=== PATIENT | male | born 1955 | race Two or more races ===

== ENCOUNTER 2021-01-04 16:24 | Outpatient (AMBR) | payer MEDICARE, MEDICAID, SELFPAY ==
--- NOTE | 2020-12-29 14:05 | PT.OIERPT ---
PT OP Initial Eval Patient Information Visit Reasons: Z86.73 Treatment Dx #1: LE weakness Start of Care: 12/29/20 Date of Onset: 3 months ago Initial Assessment Subjective Pt is 65 yr old french speaking male here with his dtr s/p cerebral hemmorhage x3 and brain sx October 10. Since then he has L LE pain behind the knee and it feels heavy. He walked around [employer] store for 30-40 mins but needs to lean onto the cart. Without the cane he struggles to walk. With it he can walk about a block. He is unable to drive safely. PMH: L/S sx x3 Pt goal: to be able to drive safely and improve community mobility. Objective 30 second chair to stand test: 8 L LE strength: ArOM: Quads: 4-/5 Extension: full HS: 3+/5 Flexion: 108 deg SLR: 40 deg Db's test: positive SLS: poor Line Pilot strength: R: 100 lbs L: 92 lbs TTP: moderate of posterior knee Assessment Pt presents with L LE weakness and pain consistent with OA. Pt doesn't have abnormal tone or neurologic deficits of L LE and good motor control. He has hamstring weakness on that side and it's unclear if that is from his Hx of lumbar spine sx or OA. Pt would benefit from skilled therapy in order to strengthen LE's and has fair rehab potential. 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 Ind with HEP 2. Pt will improve L knee strength to at least 4/5 quads and HS 3. Improved 30 sec chair to stand test to 10 Treatment Plan 1. Manual therapy 2. Therex 3. Modalities as indicated, moist heat, ice, estim Frequency and Duration 2x a week for 6 weeks Certification Dates: 12/29/20 to 03/31/21 Office Procedures PT Procedures PT Date of Service: 12/29/20 OP PT Eval Mod Complex 30 minutes: Yes
--- NOTE | 2020-12-31 16:59 | PT.ODAYNRPT ---
PT Outpatient Daily Note Date of Service: 12/31/20 OP Daily Note Visit Reasons: Z86.73 Outpatient Physical Therapy Treatment Date: 12/31/20 Subjective: Same as time of evaluation. Objective: See F/S for therex Assessment: Pt able to do partial body weight squats and lunges with fatigue after reps. Plan: continue per POC Length of Time (minutes) of Treatment: 30 Minutes Office Procedures PT Procedures PT Date of Service: 12/31/20 Therapeutic Exercise 30 minutes: Yes PT Procedures PT Date of Service: 12/29/20 OP PT Eval Mod Complex 30 minutes: Yes
--- NOTE | 2021-01-04 16:52 | PT.ODAYNRPT ---
PT Outpatient Daily Note Date of Service: 01/04/21 OP Daily Note Visit Reasons: Z86.73 Outpatient Physical Therapy Treatment Date: 01/04/21 Subjective: Some soreness in the quads after last visit attributed to not having exercised much prior Objective: See F/S for therex Assessment: Pt able to do partial body weight squats and lunges with fatigue after reps. Plan: continue per POC Length of Time (minutes) of Treatment: 30 Minutes Office Procedures PT Procedures PT Date of Service: 12/31/20 Therapeutic Exercise 30 minutes: Yes PT Procedures PT Date of Service: 01/04/21 Therapeutic Exercise 30 minutes: Yes PT Procedures PT Date of Service: 12/29/20 OP PT Eval Mod Complex 30 minutes: Yes
== END 2021-01-05 23:59 | disposition home or self-care (01) ==
PROVIDERS: PCP Nurse Practitioner Family; Referring Provider Nurse Practitioner Family; Visit Provider Nurse Practitioner Family
DX: M79.605 Pain in left leg (principal); R53.1 Weakness; Z86.73 Personal history of transient ischemic attack (TIA), and cerebral infarction without residual deficits
CPT/HCPCS: 97110; 97162

== ENCOUNTER 2021-01-14 15:50 | Outpatient (AMBR) | payer MEDICARE, MEDICAID, SELFPAY ==
--- NOTE | 2021-01-06 18:29 | PTNOTE_ITS ---
PT Outpatient Daily Note Date of Service: 01/06/21 OP Daily Note Visit Reasons: Z86.73 Outpatient Physical Therapy Treatment Date: 01/06/21 Subjective: Pt reports some LE soreness attributed to starting an exercise pro gram Objective: See f/S for therex Assessment: Pt takes 1-2 resting seated breaks during 30 minute session. He is able to do partial body weight squats and lunging continuously. Plan: Continue per POC Length of Time (minutes) of Treatment: 30 Minutes Office Procedures PT Procedures PT Date of Service: 01/06/21 Therapeutic Exercise 30 minutes: Yes
--- NOTE | 2021-01-12 19:02 | PTNOTE_ITS ---
PT Outpatient Daily Note Date of Service: 01/12/21 OP Daily Note Visit Reasons: Z86.73 Outpatient Physical Therapy Treatment Date: 01/12/21 Assessment: Pt arrived and checked in but not feeling well. Wants to cancel to day and come next time. No Rx or charges today Plan: Cancel today's appt. Office Procedures PT Procedures PT Date of Service: 01/06/21 Therapeutic Exercise 30 minutes: Yes
--- NOTE | 2021-01-14 16:46 | PT.ODAYNRPT ---
PT Outpatient Daily Note Date of Service: 01/14/21 OP Daily Note Visit Reasons: Z86.73 Outpatient Physical Therapy Treatment Date: 01/14/21 Subjective: Pt is feeling better today, not 100%. He thinks the total gym made his legs hurt and he wants to skip it. Objective: See F/S for therex Assessment: Pt is unsteady in tandem stance and uses one finger to hold onto the bar. Otherwise, he ambulates with WBOS and decreased hip and knee flexion. Plan: Continue per POC Length of Time (minutes) of Treatment: 30 Minutes Office Procedures PT Procedures PT Date of Service: 01/06/21 Therapeutic Exercise 30 minutes: Yes PT Procedures PT Date of Service: 01/14/21 Therapeutic Exercise 30 minutes: Yes
== END 2021-02-04 23:59 | disposition home or self-care (01) ==
PROVIDERS: PCP Nurse Practitioner Family; Referring Provider Nurse Practitioner Family; Visit Provider Nurse Practitioner Family
DX: M79.662 Pain in left lower leg (principal); R53.1 Weakness; R26.2 Difficulty in walking, not elsewhere classified; Z86.73 Personal history of transient ischemic attack (TIA), and cerebral infarction without residual deficits
CPT/HCPCS: 97110

== ENCOUNTER → 2024-03-21 | Outpatient (CLI) | payer MEDICARE, MEDICAID, SELFPAY ==
[2024-03-21 08:21] LABS: Collection Type, Urine Clean Catch
[2024-03-21 08:37] LABS: Basophils % (Auto) 0 % (0-2.5); Eosinophils # (Auto) 0.2 Thou/mm3 (0.0-0.5); Eosinophils % (Auto) 3 % (0-10); Hematocrit 39.8 % (41.0-53.0); Hemoglobin 11.8 g/dL (13.5-16.0); Immature Granulocytes % (Auto) 2 % (0-0); Immature Granulocytes Auto 0.16 Thou/mm3 (0.00-0.00); Lymphocytes # (Auto) 0.9 Thou/mm3 (1.0-4.8); Lymphocytes % (Auto) 10 % (10-50); Mean Corpuscular HGB Conc 29.6 g/dl (31.0-37.0); Mean Corpuscular Hemoglobin 27.1 pg (25.0-35.0); Mean Corpuscular Volume 91 fL (80-100); Monocytes # (Auto) 0.6 Thou/mm3 (0.0-0.8); Monocytes % (Auto) 7 % (0-12); Neutrophils # (Auto) 6.7 Thou/mm3 (1.8-7.7); Neutrophils % (Auto) 78 % (37-80); Nucleated Red Blood Cell # 0.03 Thou/mm3 (0.00-0.00); Nucleated Red Blood Cell % 0 /100 WBC (0); Platelet Count 170 Thou/mm3 (140-440); RDW Standard Deviation 53.8 fL (35.1-43.9); Red Blood Count 4.36 Miln/mm3 (4.50-5.90); White Blood Count 8.5 Thou/mm3 (3.8-10.6)
[2024-03-21 08:44] LABS: Bilirubin,Urine Negative (Negative); Blood,Urine 2+ (Negative); Clarity,Urine Clear (Clear/Hazy); Color,Urine Yellow (Lt Yel-Yel); Glucose, Urine 1+ (Negative); Hyaline Casts,Urine < 1 /hpf (0-1); Ketones,Urine Negative (Negative); Leukocyte Esterase,Urine Positive (Negative); Nitrite,Urine Negative (Negative); PH,Urine 5.5 (5.0-7.0); Protein,Urine 2+ (Neg - Trace); RBC,Urine 11 /hpf (0-3); Specific Gravity,Urine 1.022 (1.001-1.035); Squamous Epithelial Cell,Urine 1 /hpf (0-5); WBC,Urine 12 /hpf (0-5)
[2024-03-21 08:48] LABS: Culture Indicated,Urine Yes
[2024-03-21 08:57] LABS: Glucose Estimated Average 120 mg/dL (80-131); Hemoglobin A1C 5.8 % Hgb (4.8-6.0)
[2024-03-21 09:06] LABS: Alanine Aminotransferase 10 U/L (10-49); Albumin, Serum 4.2 gm/dL (3.4-4.8); Albumin/Globulin Ratio 1.8 (1.2-2.2); Alkaline Phosphatase 115 U/L (46-116); Anion Gap 7 (7-16); Aspartate Amino Transferase 11 U/L (0-34); BUN/Creatinine Ratio 10 Ratio (12-20); Bilirubin,Total 0.4 mg/dL (0.3-1.2); Blood Urea Nitrogen 41 mg/dL (9-23); Calcium 8.6 mg/dL (8.3-10.6); Calcium (Corrected) 8.6 mg/dL (8.5-10.1); Carbon Dioxide 29.9 mMol/L (20.0-31.0); Cardiac Risk Estimate 4.3 RATIO (4.0-6.7); Chloride 101 mMol/L (98-107); Cholesterol 90 mg/dL (132-200); Creatinine (Component) 4.3 mg/dL (0.6-1.3); Globulin 2.3 gm/dL (2.3-3.5); Glucose 148 mg/dL (74-106); HDL Cholesterol 21 mg/dL (40-60); LDL Cholesterol,Calculated 30 mg/dL (0-130); Osmolality,Calculated 288 (275-295); Potassium 4.1 mMol/L (3.4-5.1); Sodium 138 mMol/L (136-145); Thyroid Stimulating Hormone 0.75 uIU/mL (0.55-4.78); Total Protein 6.5 gm/dL (5.7-8.2); Triglycerides 195 mg/dL (30-150); eGFR 14 See Note
[2024-03-21 09:07] LABS: Creatinine MALB Rnd Ur 197 mg/dL (30-125); Microalbumin Creat Ratio 549 mg/gCrea (<30); Microalbumin, Random Urine 1081 mg/L (0-300)
== END | disposition home or self-care (01) ==
PROVIDERS: PCP Registered Nurse; Referring Provider Registered Nurse; Visit Provider Registered Nurse
DX: Z00.00 Encounter for general adult medical examination without abnormal findings (principal); N39.0 Urinary tract infection, site not specified; E11.22 Type 2 diabetes mellitus with diabetic chronic kidney disease; N18.5 Chronic kidney disease, stage 5; N13.0 Hydronephrosis with ureteropelvic junction obstruction
CPT/HCPCS: 36415; 80053; 80061; 81001; 82043; 82570; 83036; 84443; 85025; 87086

== ENCOUNTER → 2024-07-12 | Outpatient (CLI) | payer MEDICARE, MEDICAID, SELFPAY ==
[2024-07-12 08:57] LABS: Glucose Estimated Average 114 mg/dL (80-131); Hemoglobin A1C 5.6 % Hgb (4.8-6.0)
== END | disposition home or self-care (01) ==
LOC: COPL 06:45
PROVIDERS: PCP Nurse Practitioner Family; Referring Provider Nurse Practitioner Family; Visit Provider Nurse Practitioner Family
DX: E11.9 Type 2 diabetes mellitus without complications (principal)
CPT/HCPCS: 36415; 83036

== ENCOUNTER 2025-01-08 05:43 | Emergency (ER) | payer MEDICARE, MEDICAID, SELFPAY ==
[2025-01-08 05:49] VITALS: BMI 39.5
[2025-01-08 05:50] VITALS: BP 170/71; PULSE 96; RESP 19; TEMP 38.2; O2SAT 99
--- NOTE | 2025-01-08 06:15 | EKG_ITS ---
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
[2025-01-08 06:27] VITALS: PULSE 92; RESP 20; O2SAT 95
--- NOTE | 2025-01-08 06:40 | XR_ITS ---
Examination: AP chest single view Technique one AP portable upright chest single view Date and time: January 08, 2025 0732 hours, comparison August 29, 2023 INDICATIONS: Coughing today. FINDINGS: Minor prominence left ventricle. Prominent vascular congestion. Accentuation basilar bronchovascular markings. No lobar pneumonia or michael pulmonary edema IMPRESSION: Prominent vascular congestion Basilar bronchitis pattern
[2025-01-08 06:48] VITALS: BP 151/65; PULSE 93; RESP 18; O2SAT 99
--- NOTE | 2025-01-08 07:05 | PC.NURSE ---
Pt. here from home to room 10, pt.'s daughter is bedside with pt., pt. is SOB and labored breathing. Pt. has dialysis access to left arm, pt. gets dialysis MWF. Daughter states today that pt. was a bit confused this morning and pt. states he has a CORDERO and daughter states pt. has a history of brain bleeds so they got scared and called the ambulance. Pt. is GCS of 15 at this time, pt. has pitting edema to left lower leg +3 and right lower leg +1. Pt. urinated on himself, pt. cleaned, clothes removed and complete linen change done. Pt. tolerated well. Daughter took pt.'s [place] and belongings with her, clothes home to wash. Daughter states she was sick the past couple days as well.
[2025-01-08 07:48] LABS: Basophils # (Auto) 0.0 Thou/mm3 (0.0-0.2); Basophils % (Auto) 0 % (0-2.5); Eosinophils # (Auto) 0.2 Thou/mm3 (0.0-0.5); Eosinophils % (Auto) 2 % (0-10); Hematocrit 34.1 % (41.0-53.0); Hemoglobin 10.5 g/dL (13.5-16.0); Immature Granulocytes Auto 0.11 Thou/mm3 (0.00-0.00); Lymphocytes # (Auto) 0.2 Thou/mm3 (1.0-4.8); Lymphocytes % (Auto) 3 % (10-50); Mean Corpuscular HGB Conc 30.8 g/dl (31.0-37.0); Mean Corpuscular Hemoglobin 29.0 pg (25.0-35.0); Mean Corpuscular Volume 94 fL (80-100); Monocytes # (Auto) 0.5 Thou/mm3 (0.0-0.8); Monocytes % (Auto) 6 % (0-12); Neutrophils # (Auto) 6.9 Thou/mm3 (1.8-7.7); Neutrophils % (Auto) 87 % (37-80); Nucleated Red Blood Cell # 0.00 Thou/mm3 (0.00-0.00); Nucleated Red Blood Cell % 0 /100 WBC (0); Platelet Count 189 Thou/mm3 (140-440); RDW Standard Deviation 55.4 fL (35.1-43.9); Red Blood Count 3.62 Miln/mm3 (4.50-5.90); White Blood Count 7.9 Thou/mm3 (3.8-10.6)
[2025-01-08 08:17] LABS: Lactate (Lactic Acid) 0.9 mMol/L (0.4-2.0)
[2025-01-08 08:51] LABS: B-Type Natriuretic Peptide 482 pg/mL (0-100)
[2025-01-08 08:54] LABS: INR 1.1 (0.9-1.3); Partial Thromboplastin Time 28.5 Seconds (22.0-36.0); Prothrombin Time 11.5 Seconds (9.0-12.2)
[2025-01-08 08:55] LABS: Alanine Aminotransferase 13 U/L (10-49); Albumin, Serum 3.8 gm/dL (3.4-4.8); Albumin/Globulin Ratio 1.8 (1.2-2.2); Alkaline Phosphatase 78 U/L (46-116); Anion Gap 11 (7-16); Aspartate Amino Transferase 17 U/L (0-34); BUN/Creatinine Ratio 12 Ratio (12-20); Bilirubin,Total 0.3 mg/dL (0.3-1.2); Blood Urea Nitrogen 61 mg/dL (9-23); Calcium 8.8 mg/dL (8.3-10.6); Calcium (Corrected) 9.0 mg/dL (8.5-10.1); Carbon Dioxide 25.3 mMol/L (20.0-31.0); Chloride 105 mMol/L (98-107); Creatinine (Component) 5.0 mg/dL (0.6-1.3); Estimated Creatinine Clearance 16.5 mL/min (>60); Globulin 2.1 gm/dL (2.3-3.5); Glucose 87 mg/dL (74-106); Lipase 43 U/L (12-53); Magnesium 1.7 mg/dL (1.6-2.6); Osmolality,Calculated 297 (275-295); Potassium 5.1 mMol/L (3.4-5.1); Procalcitonin 0.63 ng/ml (0.0-0.49); Sodium 141 mMol/L (136-145); Total Protein 5.9 gm/dL (5.7-8.2); Troponin I < 0.020 ng/mL (0.0-0.045); eGFR 12 See Note
[2025-01-08 09:26] VITALS: BP 137/71; PULSE 87; RESP 22; TEMP 37.3; O2SAT 94
[2025-01-08 10:36] LABS: Collection Type, Urine Clean Catch; Squamous Epithelial Cell,Urine 0 /hpf (0-5)
[2025-01-08 10:46] LABS: Bilirubin,Urine Negative (Negative); Blood,Urine Trace (Negative); Clarity,Urine Clear (Clear/Hazy); Color,Urine Lt-Yellow (Lt Yel-Yel); Glucose, Urine Negative (Negative); Ketones,Urine Negative (Negative); Leukocyte Esterase,Urine Negative (Negative); Nitrite,Urine Negative (Negative); PH,Urine 6.0 (5.0-7.0); Protein,Urine 1+ (Neg - Trace); RBC,Urine 6 /hpf (0-3); Specific Gravity,Urine 1.015 (1.001-1.035); Urobilinogen,Urine Negative mg/dL (0.0-1.0); WBC,Urine 2 /hpf (0-5)
--- NOTE | 2025-01-08 11:30 | PD.EDFEVER ---
ED Fever RME/HPI General Chief Complaint: Fever Stated Complaint: FEVER Time Seen by Provider: 01/08/25 06:15 Arrival date/time: 01/08/25 05:43 Related Data Home Medications ?Medication ?Instructions ?Recorded ?Confirmed tamsulosin 0.4 mg capsule (Flomax) 0.4 mg PO BID ##0 04/04/16 10/04/22 finasteride 5 mg tablet (Proscar) 5 mg PO BID 09/07/20 10/04/22 gemfibrozil 600 mg tablet (Lopid) 600 mg PO BID 09/07/20 10/04/22 glimepiride 4 mg tablet (Amaryl) 2 mg PO BID 09/07/20 10/04/22 pantoprazole 40 mg tablet,delayed 40 mg PO QDAY 09/07/20 10/04/22 release amlodipine 10 mg tablet 10 mg PO QPM 05/16/21 10/04/22 dulaglutide 1.5 mg/0.5 mL 1.5 mg subcut QWEEK 05/16/21 10/04/22 subcutaneous pen injector (Trulicity) insulin degludec 100 unit/mL (3 15 unit subcut QAM 05/16/21 10/04/22 mL) subcutaneous pen (Tresiba FlexTouch U-100 insulin) simvastatin 40 mg tablet 40 mg PO HS 05/19/21 10/04/22 cetirizine 10 mg tablet 1 tab PO QDAY 01/24/22 10/04/22 calcitriol 0.25 mcg capsule 0.25 mcg PO QDAY 08/03/22 10/04/22 epoetin caitlin-epbx 10,000 unit/mL 20,000 unit subcut QWEEK 08/03/22 10/04/22 injection solution (Retacrit) ipratropium 0.5 mg-albuterol 3 mg 3 ml inhalation QID 08/03/22 10/04/22 (2.5 mg base)/3 mL nebulization soln bumetanide 2 mg tablet 1 mg PO BID 10/04/22 10/04/22 gabapentin 100 mg tablet 100 mg PO QDAY 10/04/22 10/04/22 metoprolol tartrate 100 mg tablet 100 mg PO BID 10/04/22 10/04/22 pramipexole 1.5 mg tablet (Mirapex) 1.5 mg PO HS 10/04/22 10/04/22 simvastatin 40 mg tablet 40 mg PO QPM 10/04/22 10/04/22 tramadol 50 mg tablet 50 mg PO Q12H PRN Pain 10/04/22 10/04/22 trazodone 100 mg tablet 100 mg PO QPM 10/04/22 10/04/22 Allergies Allergy/AdvReac Type Severity Reaction Status Date / Time No Known Allergies Allergy Verified 04/07/23 07:00 Course Orders Category Date Time Status Bedside COVID-19 Antigen Test NOW Care 01/08/25 06:25 Active Bedside Influenza A&B Antigen Test NOW Care 01/08/25 06:25 Completed Human Resources Benefits Coordinator NOW Care 01/08/25 06:15 Active EKG (ED ONLY) *Do not use* NOW Care 01/08/25 06:15 Completed EKG (ED Only) Stat Exams 01/08/25 06:15 Draft XR chest 1V portable Stat Exams 01/08/25 06:40 Completed B-Type Natriuretic Peptide Stat Lab 01/08/25 08:08 Completed Blood Culture (Lab) Stat Lab 01/08/25 07:05 Received CBC Stat Lab 01/08/25 07:05 Completed Comprehensive Metabolic Panel Stat Lab 01/08/25 08:08 Completed Lactate (Lactic Acid) Stat Lab 01/08/25 08:08 Completed Lipase Stat Lab 01/08/25 08:08 Completed Magnesium Stat Lab 01/08/25 08:08 Completed Partial Thromboplastin Time Stat Lab 01/08/25 08:08 Completed Procalcitonin Stat Lab 01/08/25 08:08 Completed Prothrombin Time with INR Stat Lab 01/08/25 08:08 Completed Troponin I Stat Lab 01/08/25 08:08 Completed Urinalysis Stat Lab 01/08/25 10:20 Received Urine Culture Stat Lab 01/08/25 10:20 Received Vital Signs Vital signs: Vital Signs Temperature 100.7 F H 01/08/25 05:50 Pulse Rate 96 01/08/25 05:50 Respiratory Rate 19 01/08/25 05:50 Blood Pressure 170/71 H 01/08/25 05:50 Pulse Oximetry (%) 99 01/08/25 05:50 Oxygen Delivery Method Room Air 01/08/25 05:50 Discharge Plan Plan Patient Disposition: HOME (Self Care) Prescriptions/Referrals Prescriptions/Med Rec: No Action tamsulosin [Flomax] 0.4 MG capsule,extended release 24hr 0.4 mg PO BID Qty: 0 gemfibrozil [Lopid] 600 mg Tablet 600 mg PO BID pantoprazole 40 mg Tablet,Delayed Release (Dr/Ec) 40 mg PO QDAY glimepiride [Amaryl] 4 mg Tablet 2 mg PO BID Rx Instructions: 2 mg 2x/day finasteride [Proscar] 5 mg Tablet 5 mg PO BID amlodipine 10 mg tablet 10 mg PO QPM Patient Comments: take 1 tablet by mouth every evening Trulicity 1.5 mg/0.5 mL Pen Injector 1.5 mg SUBCUT QWEEK insulin degludec [Tresiba FlexTouch U-100] 100 unit/mL (3 mL) insulin pen 15 unit SUBCUT QAM Patient Comments: inject 20 units subcutaneously every morning simvastatin 40 mg tablet 40 mg PO HS ipratropium-albuterol 0.5 mg-3 mg(2.5 mg base)/3 mL Solution For Nebulization 3 ml INHALATION QID calcitriol 0.25 mcg Capsule 0.25 mcg PO QDAY Retacrit 10,000 unit/mL Solution 20,000 unit subcut QWEEK gabapentin 100 mg Tablet 100 mg PO QDAY bumetanide 2 mg tablet 1 mg PO BID metoprolol tartrate 100 mg tablet 100 mg PO BID Patient Comments: take 1 tablet by mouth twice a day with food pramipexole [Mirapex] 1.5 MG tablet 1.5 mg PO HS tramadol 50 mg Tablet 50 mg PO Q12H PRN (Reason: Pain) simvastatin 40 mg Tablet 40 mg PO QPM trazodone 100 mg Tablet 100 mg PO QPM cetirizine 10 mg tablet 1 tab PO QDAY Referrals: LUIS A ECKERT [Primary Care Provider] - In 1 week Problem List Clinical Impression: COVID-19 Patient/Caregiver Discharge Instructions Education Materials: COVID-19 Home Care Print Language: Sinhala Stand Alone Forms: Thais Award Info., Patient Portal Info Letter
--- NOTE | 2025-01-08 11:55 | PC.NURSE ---
Pt. up to RR via wheel chair, pt. tolerated well. Pt. son ELIZABETH is bedside.
--- NOTE | 2025-01-08 11:57 | PC.NURSE ---
Pt. son JJ states that pt. is less confused now than he was this morning, JJ states that pt. is still confused and very sleepy. Dr. Arce informed, doctor states that she will order a CT of pt.'s head and then will speak to the pt.'s family.
--- NOTE | 2025-01-08 12:02 | PD.EDFEVER ---
ED Fever RME/HPI General Chief Complaint: Fever Stated Complaint: FEVER Time Seen by Provider: 01/08/25 06:15 Arrival date/time: 01/08/25 05:43 RME / HPI RME / HPI Narrative: 69 year old male with history of HFpEF 55-60% 08/2022, COPD, CKD, ESRD on HD M/W/F, hypertension, diabetes, hyperlipidemia presents to the ED BIBA from home for evaluation of fever and feeling unwell today. States he was getting ready for dialysis today when noted to feel feverish and overall unwell. No other associated symptoms or complaints were reported. Denies chest pain, cough, shortness of breath. Denies nausea, vomiting, diarrhea, constipation. Patients family later arrived and stated they called EMS due to the patient being confused this morning. Report history of subdural hematoma in 2020. Related Data Home Medications ?Medication ?Instructions ?Recorded ?Confirmed tamsulosin 0.4 mg capsule (Flomax) 0.4 mg PO BID ##0 04/04/16 10/04/22 finasteride 5 mg tablet (Proscar) 5 mg PO BID 09/07/20 10/04/22 gemfibrozil 600 mg tablet (Lopid) 600 mg PO BID 09/07/20 10/04/22 glimepiride 4 mg tablet (Amaryl) 2 mg PO BID 09/07/20 10/04/22 pantoprazole 40 mg tablet,delayed 40 mg PO QDAY 09/07/20 10/04/22 release amlodipine 10 mg tablet 10 mg PO QPM 05/16/21 10/04/22 dulaglutide 1.5 mg/0.5 mL 1.5 mg subcut QWEEK 05/16/21 10/04/22 subcutaneous pen injector (Trulicity) insulin degludec 100 unit/mL (3 15 unit subcut QAM 05/16/21 10/04/22 mL) subcutaneous pen (Tresiba FlexTouch U-100 insulin) simvastatin 40 mg tablet 40 mg PO HS 05/19/21 10/04/22 cetirizine 10 mg tablet 1 tab PO QDAY 01/24/22 10/04/22 calcitriol 0.25 mcg capsule 0.25 mcg PO QDAY 08/03/22 10/04/22 epoetin caitlin-epbx 10,000 unit/mL 20,000 unit subcut QWEEK 08/03/22 10/04/22 injection solution (Retacrit) ipratropium 0.5 mg-albuterol 3 mg 3 ml inhalation QID 08/03/22 10/04/22 (2.5 mg base)/3 mL nebulization soln bumetanide 2 mg tablet 1 mg PO BID 10/04/22 10/04/22 gabapentin 100 mg tablet 100 mg PO QDAY 10/04/22 10/04/22 metoprolol tartrate 100 mg tablet 100 mg PO BID 10/04/22 10/04/22 pramipexole 1.5 mg tablet (Mirapex) 1.5 mg PO HS 10/04/22 10/04/22 simvastatin 40 mg tablet 40 mg PO QPM 10/04/22 10/04/22 tramadol 50 mg tablet 50 mg PO Q12H PRN Pain 10/04/22 10/04/22 trazodone 100 mg tablet 100 mg PO QPM 10/04/22 10/04/22 Allergies Allergy/AdvReac Type Severity Reaction Status Date / Time No Known Allergies Allergy Verified 04/07/23 07:00 Review of Systems Review of Systems Systems Reviewed: All systems reviewed, normal except as documented Past Medical History Past Medical History NEUROLOGIC: Positive Neurological Disorders, Cerebrovascular Accident, Peripheral Neuropathy and Subdural Hematoma (4years ago) CARDIAC: Positive Cardiac Disorders, Edema and Hypertension RESPIRATORY: Positive Chronic Obstructive Pulmonary Disease (COPD) and Sleep Apnea GASTROINTESTINAL: Positive Gastrointestinal Disorders, Gall Bladder Disease, Ulcer, Hemorrhoids and Obesity GENITOURINARY: Positive Genitourinary Disorders, Renal Disease, Kidney Stones, Dialysis and Benign Prostatic Hyperplasia MUSCULOSKELETAL: Positive Musculoskeletal Disorders, Arthritis and Fractures (knee, arm) ENDOCRINE: Positive Endocrine Disorders and Diabetes Mellitus Type 2 HEMATOLOGIC: Positive Blood Disorders OTHER HISTORY: Positive Hospitalization and Shingles Family History FAMILY HISTORY: Positive Family Respiratory Disorders, Family Cardiac Disorders and Family Cancer Social History SMOKING STATUS: Never smoker SUBSTANCE USE: does not use Physical Exam Narrative Physical exam: GENERAL APPEARANCE: alert and oriented x 4, well-developed, obese, mildly diaphoretic, no acute distress HEENT: Normocephalic, atraumatic; pupils equal, round, reactive to light; EOMI; mucous membranes pink, moist; oropharynx clear NECK: Supple LUNGS: CTABL; no wheezes, no rales, no rhonchi HEART: Regular rate, regular rhythm; normal S1, S2; no murmurs ABDOMEN: non distended; normal BS; soft, no tenderness, no guarding, no rebound; no masses, no organomegaly, no hernia BACK: no CVA tenderness EXTREMITIES: atraumatic; no edema NEUROLOGIC: awake; alert and oriented x4; cranial nerves II-XII grossly intact; no focal sensory or motor deficits PSYCHIATRIC: appropriate mood and affect SKIN: warm, mildly diaphoretic, normal color; no rashes Course Quality Measures none Orders Category Date Time Status Bedside COVID-19 Antigen Test NOW Care 01/08/25 06:25 Active Bedside Influenza A&B Antigen Test NOW Care 01/08/25 06:25 Completed Production Team Advisor NOW Care 01/08/25 06:15 Active EKG (ED ONLY) *Do not use* NOW Care 01/08/25 06:[address] head/brain wo con Stat Exams 01/08/25 12:22 Completed EKG (ED Only) Stat Exams 01/08/25 06:15 Draft XR chest 1V portable Stat Exams 01/08/25 06:40 Completed B-Type Natriuretic Peptide Stat Lab 01/08/25 08:08 Completed Blood Culture (Lab) Stat Lab 01/08/25 07:05 Received CBC Stat Lab 01/08/25 07:05 Completed Comprehensive Metabolic Panel Stat Lab 01/08/25 08:08 Completed Lactate (Lactic Acid) Stat Lab 01/08/25 08:08 Completed Lipase Stat Lab 01/08/25 08:08 Completed Magnesium Stat Lab 01/08/25 08:08 Completed Partial Thromboplastin Time Stat Lab 01/08/25 08:08 Completed Procalcitonin Stat Lab 01/08/25 08:08 Completed Prothrombin Time with INR Stat Lab 01/08/25 08:08 Completed Troponin I Stat Lab 01/08/25 08:08 Completed Urinalysis Stat Lab 01/08/25 10:20 Completed Urine Culture Stat Lab 01/08/25 10:20 Received Vital Signs Vital signs: Vital Signs Temperature 100.7 F H 01/08/25 05:50 Pulse Rate 96 01/08/25 05:50 Respiratory Rate 19 01/08/25 05:50 Blood Pressure 170/71 H 01/08/25 05:50 Pulse Oximetry (%) 99 01/08/25 05:50 Oxygen Delivery Method Room Air 01/08/25 05:50 Pulse ox is 99% on room air which is adequate. Fever MDM Narrative MDM Narrative:: Gena Garcia am scribing for and in the presence of Dr. Arce. 1140: Patients work up today remarkable for covid-19. Made aware by RN that the family are concerned about the patients confusion and headache. State he had a large subdural hematoma in 2020 and had experienced similar symptoms. Will order head CT. The head CT was negative for any acute findings. Family reports the patients confusion has slightly improved. Will DC home. Patient data External records reviewed:: [facility] previous records (I reviewed ED visit on 08/29/2023 ) and EMS form Clinical information provided by:: patient, EMS and family Social determinants that could affect healthcare access:: none Patient has the following chronic illnesses:: HFpEF 55-60% 08/2022, COPD, CKD, ESRD on HD M/W/F, hypertension, diabetes, hyperlipidemia How is presenting disease/condition affected by chronic disease/condition?: exacerbated by Evaluation data The following diagnostics were reviewed and interpreted by me:: lab results, radiology exam(s) and EKG tracing(s) (EKG @ 07:47 AM. NSR with first degree AV, HR 93, left anterior fascicular block. ) Lab and/or radiology exams considered but not ordered:: None Interpretation Summary: Ordering Physician: Nidhi Arce MD Date of Service: 01/08/25 Procedure(s): CT head/brain wo con Accession Number(s): [id number] cc: Lowell Castro MD; Nidhi Arce MD; LUIS A ECKERT ~ Examination: CT brain head without contrast. 2-D sagittal coronal reconstructions Date and time of exam:January 08, 2025 1434 hours, comparison August 29, 2023 INDICATIONS: Onset altered mental status today continue CTDI: vol (mGy):54.9 DLP: (mGycm):1102 Technique: Multiple CT axial sections of the brain have been obtained, 5 mm slice thickness. Contrast has not been administered. 2-D sagittal, coronal reconstructions have been obtained Low dose protocols were performed. One or more of the following dose reduction techniques were used; automated exposure control, adjustment of the mA and/or KV according to patient size, use of iterative reconstruction technique. Findings: No significant ventricular enlargement. Intra-axial or extra-axial hemorrhage density is not seen. No mass effect or midline shift Basal cisterns are not remarkable. Fourth ventricle is midline. Right frontal craniotomy defect Impression: Negative for acute hemorrhage, mass effect or midline shift Advise clinical correlation follow-up accordingly Dictated By: Lowell Castro MD Signed By: <Electronically signed by Lowell Castro MD in OV> 01/08/25 1444 Medications / Prescriptions Medications or Prescriptions considered but not ordered:: None Medication administrations:: See above Consultations Consultation(s) initiated? (list below): No Diagnosis Fever Differential Diagnosis: fever of unknown origin, community acquired pneumonia, viral infection, sepsis, influenza and other (covid ) Most likely diagnosis given after review of the tests above:: Covid-19 Admission Indicated Admission indicated?: not indicated Admission Request Was there a request for admission?: No Disposition Plan Disposition Plan: Discharge Discharge Attestation Discharge Attestation: The patient and all family members were given an opportunity to ask questions and understood the discharge instructions. Discharge instructions specifically effects, indications for sooner follow up or return to the emergency department, and the expected course of current diagnosis. Patient condition: Stable Discharge Plan Plan Patient Disposition: HOME (Self Care) Prescriptions/Referrals Prescriptions/Med Rec: No Action tamsulosin [Flomax] 0.4 MG capsule,extended release 24hr 0.4 mg PO BID Qty: 0 gemfibrozil [Lopid] 600 mg Tablet 600 mg PO BID pantoprazole 40 mg Tablet,Delayed Release (Dr/Ec) 40 mg PO QDAY glimepiride [Amaryl] 4 mg Tablet 2 mg PO BID Rx Instructions: 2 mg 2x/day finasteride [Proscar] 5 mg Tablet 5 mg PO BID amlodipine 10 mg tablet 10 mg PO QPM Patient Comments: take 1 tablet by mouth every evening Trulicity 1.5 mg/0.5 mL Pen Injector 1.5 mg SUBCUT QWEEK insulin degludec [Tresiba FlexTouch U-100] 100 unit/mL (3 mL) insulin pen 15 unit SUBCUT QAM Patient Comments: inject 20 units subcutaneously every morning simvastatin 40 mg tablet 40 mg PO HS ipratropium-albuterol 0.5 mg-3 mg(2.5 mg base)/3 mL Solution For Nebulization 3 ml INHALATION QID calcitriol 0.25 mcg Capsule 0.25 mcg PO QDAY Retacrit 10,000 unit/mL Solution 20,000 unit subcut QWEEK gabapentin 100 mg Tablet 100 mg PO QDAY bumetanide 2 mg tablet 1 mg PO BID metoprolol tartrate 100 mg tablet 100 mg PO BID Patient Comments: take 1 tablet by mouth twice a day with food pramipexole [Mirapex] 1.5 MG tablet 1.5 mg PO HS tramadol 50 mg Tablet 50 mg PO Q12H PRN (Reason: Pain) simvastatin 40 mg Tablet 40 mg PO QPM trazodone 100 mg Tablet 100 mg PO QPM cetirizine 10 mg tablet 1 tab PO QDAY Referrals: LUIS A ECKERT [Primary Care Provider] - In 1 week Problem List Clinical Impression: COVID-19 Patient/Caregiver Discharge Instructions Education Materials: COVID-19 Home Care Print Language: Mozambican Stand Alone Forms: Thais Award Info., Patient Portal Info Letter
--- NOTE | 2025-01-08 12:22 | XR_ITS ---
Examination: CT brain head without contrast. 2-D sagittal coronal reconstructions Date and time of exam:January 08, 2025 1434 hours, comparison August 29, 2023 INDICATIONS: Onset altered mental status today continue CTDI: vol (mGy):54.9 DLP: (mGycm):1102 Technique: Multiple CT axial sections of the brain have been obtained, 5 mm slice thickness. Contrast has not been administered. 2-D sagittal, coronal reconstructions have been obtained Low dose protocols were performed. One or more of the following dose reduction techniques were used; automated exposure control, adjustment of the mA and/or KV according to patient size, use of iterative reconstruction technique. Findings: No significant ventricular enlargement. Intra-axial or extra-axial hemorrhage density is not seen. No mass effect or midline shift Basal cisterns are not remarkable. Fourth ventricle is midline. Right frontal craniotomy defect Impression: Negative for acute hemorrhage, mass effect or midline shift Advise clinical correlation follow-up accordingly
[2025-01-08 15:04] VITALS: BP 135/59; PULSE 77; RESP 22; TEMP 36.5; O2SAT 99
[2025-01-08 17:52] VITALS: BP 131/85; PULSE 84; RESP 20; TEMP 37.3; O2SAT 96
== END 2025-01-08 17:52 | disposition home or self-care (01) ==
PROVIDERS: Emergency Provider Emergency Medicine; PCP Nurse Practitioner Family
DX: U07.1 COVID-19 (principal); I13.2 Hypertensive heart and chronic kidney disease with heart failure and with stage 5 chronic kidney disease, or end stage renal disease; I50.32 Chronic diastolic (congestive) heart failure; N18.6 End stage renal disease; J44.9 Chronic obstructive pulmonary disease, unspecified; Z99.2 Dependence on renal dialysis; E78.5 Hyperlipidemia, unspecified; E11.22 Type 2 diabetes mellitus with diabetic chronic kidney disease; R41.0 Disorientation, unspecified
CPT/HCPCS: 36415; 70450; 71045; 80053; 81001; 83605; 83690; 83735; 83880; 84145; 84484; 85025; 85610; 85730; 87040; 87086; 87400; 87811; 93005; 99284

== ENCOUNTER → 2025-04-24 | Outpatient (CLI) | payer MEDICARE, MEDICAID, SELFPAY ==
[2025-04-24 10:30] LABS: Collection Type, Urine Clean Catch
[2025-04-24 10:47] LABS: Basophils # (Auto) 0.0 Thou/mm3 (0.0-0.2); Basophils % (Auto) 0 % (0-2.5); Eosinophils # (Auto) 0.3 Thou/mm3 (0.0-0.5); Eosinophils % (Auto) 3 % (0-10); Hematocrit 35.3 % (41.0-53.0); Hemoglobin 10.4 g/dL (13.5-16.0); Immature Granulocytes Auto 0.06 Thou/mm3 (0.00-0.00); Lymphocytes # (Auto) 0.7 Thou/mm3 (1.0-4.8); Lymphocytes % (Auto) 9 % (10-50); Mean Corpuscular HGB Conc 29.5 g/dl (31.0-37.0); Mean Corpuscular Hemoglobin 29.1 pg (25.0-35.0); Mean Corpuscular Volume 99 fL (80-100); Monocytes # (Auto) 0.5 Thou/mm3 (0.0-0.8); Monocytes % (Auto) 6 % (0-12); Neutrophils # (Auto) 6.8 Thou/mm3 (1.8-7.7); Neutrophils % (Auto) 81 % (37-80); Nucleated Red Blood Cell # 0.00 Thou/mm3 (0.00-0.00); Nucleated Red Blood Cell % 0 /100 WBC (0); Platelet Count 149 Thou/mm3 (140-440); RDW Standard Deviation 62.6 fL (35.1-43.9); Red Blood Count 3.57 Miln/mm3 (4.50-5.90); White Blood Count 8.4 Thou/mm3 (3.8-10.6)
[2025-04-24 11:09] LABS: Bacteria,Urine Rare; Bilirubin,Urine 1+ (Negative); Blood,Urine 3+ (Negative); Clarity,Urine Turbid (Clear/Hazy); Color,Urine Yellow (Lt Yel-Yel); Culture Indicated,Urine Yes; Glucose, Urine Trace (Negative); Hyaline Casts,Urine < 1 /hpf (0-1); Ketones,Urine Negative (Negative); Leukocyte Esterase,Urine Positive (Negative); Nitrite,Urine Negative (Negative); PH,Urine 5.5 (5.0-7.0); Protein,Urine 2+ (Neg - Trace); RBC,Urine 54 /hpf (0-3); Specific Gravity,Urine 1.026 (1.001-1.035); Squamous Epithelial Cell,Urine 2 /hpf (0-5); Urobilinogen,Urine 2.0 mg/dL (0.0-1.0); WBC,Urine 345 /hpf (0-5)
[2025-04-24 11:20] LABS: Creatinine MALB Rnd Ur 182 mg/dL (30-125)
[2025-04-24 11:21] LABS: Alanine Aminotransferase 8 U/L (10-49); Albumin, Serum 4.0 gm/dL (3.4-4.8); Albumin/Globulin Ratio 1.4 (1.2-2.2); Alkaline Phosphatase 76 U/L (46-116); Anion Gap 13 (7-16); Aspartate Amino Transferase 11 U/L (0-34); BUN/Creatinine Ratio 10 Ratio (12-20); Bilirubin,Total 0.2 mg/dL (0.3-1.2); Blood Urea Nitrogen 52 mg/dL (9-23); Calcium 8.6 mg/dL (8.3-10.6); Calcium (Corrected) 8.6 mg/dL (8.5-10.1); Carbon Dioxide 26.6 mMol/L (20.0-31.0); Chloride 100 mMol/L (98-107); Creatinine (Component) 5.3 mg/dL (0.6-1.3); Globulin 2.9 gm/dL (2.3-3.5); Glucose 217 mg/dL (74-106); Osmolality,Calculated 300 (275-295); Potassium 4.4 mMol/L (3.4-5.1); Sodium 140 mMol/L (136-145); Thyroid Stimulating Hormone 1.04 uIU/mL (0.55-4.78); Total Protein 6.9 gm/dL (5.7-8.2); eGFR 11 See Note
[2025-04-24 11:27] LABS: Microalbumin Creat Ratio 360 mg/gCrea (<30); Microalbumin, Random Urine 656 mg/L (0-300)
[2025-04-24 12:15] LABS: Cardiac Risk Estimate 4.8 RATIO (4.0-6.7); Cholesterol 105 mg/dL (132-200); HDL Cholesterol 22 mg/dL (40-60); Triglycerides 429 mg/dL (30-150)
[2025-04-24 12:16] LABS: Glucose Estimated Average 108 mg/dL (80-131); Hemoglobin A1C 5.4 % Hgb (4.8-6.0)
[2025-04-24 12:27] LABS: Vitamin D 25 Hydroxy Total 25.4 ng/mL (7.3-40.2)
== END | disposition home or self-care (01) ==
LOC: COPL 09:40
PROVIDERS: PCP Nurse Practitioner Family; Referring Provider Nurse Practitioner Family; Visit Provider Nurse Practitioner Family
DX: Z00.00 Encounter for general adult medical examination without abnormal findings (principal); Z13.0 Encounter for screening for diseases of the blood and blood-forming organs and certain disorders involving the immune mechanism; Z13.29 Encounter for screening for other suspected endocrine disorder; Z13.220 Encounter for screening for lipoid disorders; Z13.21 Encounter for screening for nutritional disorder
CPT/HCPCS: 36415; 80053; 80061; 81001; 82043; 82306; 82570; 83036; 84443; 85025; 87077; 87086; 87186